=== PATIENT | female | born 1995 | race Caucasian/White ===

== ENCOUNTER → 2022-11-28 11:52 | Outpatient (BNVA) | payer OTHER, SELFPAY | PROVIDERS: Visit Provider Registered Nurse Neonatal Intensive Care | DX: R11.10 Vomiting, unspecified (principal); R11.2 Nausea with vomiting, unspecified | CPT/HCPCS: 81025 ==

== ENCOUNTER → 2023-04-21 08:13 | Outpatient (BNVA) | payer OTHER, SELFPAY | PROVIDERS: Visit Provider Obstetrics & Gynecology | DX: Z32.00 Encounter for pregnancy test, result unknown (principal); N92.6 Irregular menstruation, unspecified | CPT/HCPCS: 81025; 84443; 85025 ==

== ENCOUNTER → 2023-05-09 15:08 | Outpatient (BNVA) | payer OTHER, SELFPAY | PROVIDERS: Visit Provider Obstetrics & Gynecology | DX: Z12.4 Encounter for screening for malignant neoplasm of cervix (principal); Z32.00 Encounter for pregnancy test, result unknown | CPT/HCPCS: 81025; 84702; 87624 ==

== ENCOUNTER → 2023-05-12 09:12 | Outpatient (BNVA) | payer OTHER, SELFPAY | PROVIDERS: Visit Provider Obstetrics & Gynecology | DX: Z32.01 Encounter for pregnancy test, result positive (principal) | CPT/HCPCS: 84702 ==

== ENCOUNTER → 2023-06-02 11:02 | Outpatient (BNVA) | payer OTHER, SELFPAY | PROVIDERS: Visit Provider Obstetrics & Gynecology | DX: Z34.91 Encounter for supervision of normal pregnancy, unspecified, first trimester (principal); Z3A.01 Less than 8 weeks gestation of pregnancy; N83.201 Unspecified ovarian cyst, right side | CPT/HCPCS: 76817 ==

== ENCOUNTER → 2023-06-16 10:50 | Outpatient (BNVA) | payer OTHER, SELFPAY | PROVIDERS: Visit Provider Nurse Practitioner Women's Health | DX: Z34.00 Encounter for supervision of normal first pregnancy, unspecified trimester; Z82.79 Family history of other congenital malformations, deformations and chromosomal abnormalities | CPT/HCPCS: 80307; 84315; 84439; 84443; 84481; 85027; 86592; 86762; 86803; 86850; 86900; 87077; 87086; 87184; 87340; 87806 ==

== ENCOUNTER → 2023-07-05 13:50 | Outpatient (BNVA) | payer OTHER, SELFPAY | PROVIDERS: Visit Provider Obstetrics & Gynecology | DX: Z34.00 Encounter for supervision of normal first pregnancy, unspecified trimester (principal); Z82.79 Family history of other congenital malformations, deformations and chromosomal abnormalities | CPT/HCPCS: 84315; 87491; 87591 ==

== ENCOUNTER 2023-08-15 11:59 | Observation (INO) | payer OTHER, SELFPAY ==
[2023-08-15] VITALS (9 sets, daily range): BP systolic 103–134; BP diastolic 67–77; PULSE 64–99; RESP 16–18; TEMP 37–37.3; O2SAT 98–100; BMI 22.9
--- NOTE | 2023-08-15 12:21 | US_ITS ---
WS: [id number] ULTRASOUND OB FOCUSED HISTORY: ab pain; 18 wks preg, RIGHT lower quadrant pain. COMPARISON: 06/02/2023 Single intrauterine gestation is identified in breech position. Heart rate at 144 bpm. Cervix is clos ed. Normal amniotic fluid. Placenta is anterior with no previa or abruption. heart rate at 144 BPM. Patient has a known RIGHT ovarian cyst which is reidentified. Cyst is within the RIGHT ovary. The cys t measures 3.5 x 4.9 x 4.1 cm. Not significantly changed since the prior study. The adjacent RIGHT ov bela stromal tissue is more prominent. The entire ovary now is enlarged at 6.9 x 3.3 x 5.6 cm. There is vascularity identified in a portion of the ovary but not all of the ovarian stroma contains vascu larity. No adjacent free fluid. IMPRESSION: 1. Normal heart rate. 2. RIGHT ovarian cyst which has been previously described has not increased in size. The adjacent RIG HT ovary has increased in size and there is variable vascularity. Not all of the ovarian stroma has d ocumented blood flow. Due to the increase in size of the ovary and heterogeneity within the ovarian s troma, ovarian torsion or partial torsion should be considered. Please note the patient is tender dir ectly over this enlarged RIGHT ovary. Notified Zoe Le at 08/15/2023 2:18 PM.
[2023-08-15 12:48] LABS: Basophils % 0.3 %; Eosinophils % 0.2 %; Lymphocytes # 1.1 10^3/uL (0.8-4.8); Lymphocytes % 9.2 %; Mean Corpuscular HGB Conc 33.4 g/dL (30-55); Mean Corpuscular Hemoglobin 32.7 pg (27-33); Mean Corpuscular Volume 97.9 fl (85-98); Mean Platelet Volume 9.9 fL (7.4-10.4); Monocytes # 0.3 10^3/uL (0.2-0.9); Monocytes % 2.9 %; Neutrophils # 10.25 10^3/uL (1.8-7.7); Neutrophils % 86.7 %; Nucleated Red Blood Cells % 0 %; Platelet Count 277 10^3/cmm (157-399); Red Blood Count 3.88 10^6/uL (3.85-5.65); Red Cell Distribution Width 12.8 % (12.1-15.1); White Blood Count 11.81 10^3/uL (3.29-11.43)
[2023-08-15 13:03] LABS: Alanine Aminotransferase 48 U/L (0-33); Alkaline Phosphatase 104 U/L (35-105); Aspartate Amino Transferase 31 U/L (0-32); Blood Urea Nitrogen 6 mg/dL (6-20); Carbon Dioxide 22 mmol/L (22-29); Chloride 102 mmol/L (98-107); Globulin 3.2 g/dL (1.3-4.6); Glomerular Filtration Rate 149.1 mL/min (90-130); Glucose 98 mg/dL (65-115); Lipase 19 U/L (13-60); Osmolality Calculated 280 mOsm/kg (285-295); Sodium 136 mmol/L (136-145); Total Bilirubin 0.2 mg/dL (0.15-1.2); Total Protein 7.2 g/dL (6.6-8.7)
--- NOTE | 2023-08-15 13:57 | ED_ITS ---
Documented by User: [email or web address] Echavarria 08/15/23 16:19 HPI - Abdominal Pain General: Chief Complaint: Abdominal Pain Stated Complaint: abd pain, 18 weeks preg Time Seen by Provider: 08/15/23 13:36 Source: patient Mode of arrival: ambulatory Limitations: no limitations History of Present Illness: Patient is a 28-year-old female at approximately 18 weeks gestation here for com plaints of right pelvic pain that began around 6 AM this morning. Patient states she has a history of a right ovarian cyst but normally will cause her discomfort but she states her pain currently is worse than its ever been. She states she is having nausea and vomiting although this is not uncommon as she has had this throughout her . Her OB provider is Dr. Collins. Patient has not felt any movement thus far in her yet. She is not having any vaginal bleeding or leaking of fluids. She denies fevers or changes in her bowel movements. Denies urinary symptoms. MD elicited complaint: abdominal pain Pertinent past history: other (ovarian cyst ) Onset (ago): hour(s) Pain Consistency: constant Location: RLQ and Pelvis Severity: moderate Quality: sharp Radiation: none Migration to: no migration Exacerbating factors: nothing Relieving factors: nothing Associated Symptoms: Reports nausea and vomiting; Denies change in bowel habits, chills, constipation, diarrhea, dysuria and fever(s) Related Data: Patient : Yes Review of Systems Const: Denies: fever(s), chills, body aches, fatigue or malaise Card: Denies: chest pain Resp: Denies: dyspnea GI: Reports: abdominal pain, nausea and vomiting; Denies: diarrhea, constipation or change in bowel habits : Denies: flank pain, difficulty voiding, dysuria, urinary frequency or urinary urgency Musc: Denies: neck pain, back pain, extremity pain or joint pain Skin/Breast: Denies: rash Neuro: Denies: headache(s), numbness in extremities, weakness in extremities, sensory changes or dizziness PFSH ED PFSH: Family History Denies family history of Colon cancer Ovarian cancer Diabetes Heart disease Hyperlipidemia Breast cancer Hypertension Uterine cancer Thyroid disease Stroke Female Reproductive History: : 1 Physical Exam Const: COMMON NORMALS: average body habitus, patient oriented x3, no limitations, healthy appearing, alert and well nourished GENERAL APPEARANCE: cooperative and in distress (appears uncomfortable) Resp: COMMON NORMALS: normal respiratory effort and clear to auscultation bilaterally AUSCULTATION: clear to auscultation bilaterally Cardio: COMMON NORMALS: regular rate and regular rhythm RATE: regular rate RHYTHM: regular rhythm GI: COMMON NORMALS: Soft to palpation, No hepatosplenomegaly present and no masses INSPECTION: Yes normal to inspection and Yes gravid abdomen AUSCULTATION: Yes normoactive bowel sounds PALPATION: Yes Soft to palpation, Yes Tenderness to palpation present (GI) (R pelvis ) and Yes No hepa tosplenomegaly present OTHER: tenderness is lower in pelvis vs over RLQ/McBurney's : COMMON NORMALS: Yes no CVA tenderness BLADDER/KIDNEY EXAM: Yes no CVA tenderness Back/Pelvis: COMMON NORMALS: no CVA tenderness Extremity: GENERAL: Yes normal exam except as noted Neuro: COMMON NORMALS: patient oriented x3, moves all extremities, no focal motor deficits and no sensory deficits noted SENSORIUM/ORIENTATION: Yes alert Skin: COMMON NORMALS: no rashes or lesions noted GENERAL SKIN EXAM: no rashes or lesions noted Course Consultations: Consultation #1: Dr. Ashby-wanted me to call back with urine results, recommended 1g of Tylenol; called her back and she felt like patient could be discharged with return precautions-I discussed with her my hesitancy and we agreed to admit patient to OBS-she states that Dr. Collins is soa integration developer starting at 1700 so he will have to take patient-I told her I will contact him Consultation #2: Dr. Collins-recommends admit to labor and delivery and he will consult on patient at 1700 when he gets into town Vital Signs: Vital signs: Vital Signs Temperature 97.8 F 08/16/23 10:36 Pulse Rate 81 08/16/23 10:36 Respiratory Rate 16 08/16/23 10:36 Blood Pressure 92/58 08/16/23 10:36 Pulse Oximetry 98 08/16/23 10:36 Oxygen Delivery Me thod Room Air 08/16/23 10:35 MDM - Abdominal Pain Medical Decision Making Patient here for right sided pelvic pain beginning fairly suddenly around 6 AM this morning. Patient has had pain since onset. She has a known right ovarian cyst. On ultrasound today cyst size has not increased however her right ovary appears enlarged and the radiologist questioned an ovarian torsion or partial torsion. We will admit to labor and delivery and Dr. Collins will consult on patient. Lab Data 08/16/23 05:35 08/16/23 05:35 Labs/Radiology: Laboratory Results WBC 11.81 10^3/uL (3.29-11.43) H 08/15/23 12:38 RBC 3.88 10^6/uL (3.85-5.65) 08/15/23 12:38 Hgb 12.70 g/dL (11.27-16.99) 08/15/23 12:38 Hct 38.0 % (36-47) 08/15/23 12:38 MCV 97.9 fl (85-98) 08/15/23 12:38 MCH 32.7 pg (27-33) 08/15/23 12:38 MCHC 33.4 g/dL (30-55) 08/15/23 12:38 RDW 12.8 % (12.1-15.1) 08/15/23 12:38 Plt Count 277 10^3/cmm (157-399) 08/15/23 12:38 MPV 9.9 fL (7.4-10.4) 08/15/23 12:38 Neut % (Auto) 86.7 % 08/15/23 12:38 Lymph % (Auto) 9.2 % 08/15/23 12:38 [place] % (Auto) 2.9 % 08/15/23 12:38 Eos % (Auto) 0.2 % 08/15/23 12:38 Baso % (Auto) 0.3 % 08/15/23 12:38 Neut # (Auto) 10.25 10^3/uL (1.8-7.7) H 08/15/23 12:38 Lymph # (Auto) 1.1 10^3/uL (0.8-4.8) 08/15/23 12:38 [place] # (Auto) 0.3 10^3/uL (0.2-0.9) 08/15/23 12:38 Eos # (Auto) 0.0 10^3/uL (0.0-0.8) 08/15/23 12:38 Baso # (Auto) 0.0 10^3/uL (0.0-0.1) 08/15/23 12:38 Nucleated RBC % (auto) 0 % 08/15/23 12:38 Nucleated RBCs # 0.0 /100WBC 08/15/23 12:38 Sodium 136 mmol/L (136-145) 08/15/23 12:38 Potassium 4.0 mmol/L (3.5-5.1) 08/15/23 12:38 Chloride 102 mmol/L (98-107) 08/15/23 12:38 Carbon Dioxide 22 mmol/L (22-29) 08/15/23 12:38 Anion Gap 16.0 (5-19) 08/15/23 12:38 BUN 6 mg/dL (6-20) 08/15/23 12:38 Creatinine 0.5 mg/dL (0.5-0.9) 08/15/23 12:38 GFR Calculation 149.1 mL/min (90-130) H 08/15/23 12:38 Glucose 98 mg/dL (65-115) 08/15/23 12:38 Calculated Osmolality 280 mOsm/kg (285-295) L 08/15/23 12:38 Calcium 9.0 mg/dL (8.5-10.5) 08/15/23 12:38 Total Bilirubin 0.2 mg/dL (0.15-1.2) 08/15/23 12:38 AST 31 U/L (0-32) 08/15/23 12:38 ALT 48 U/L (0-33) H 08/15/23 12:38 Alkaline Phosphatase 104 U/L (35-105) 08/15/23 12:38 Total Protein 7.2 g/dL (6.6-8.7) 08/15/23 12:38 Albumin 4.0 g/dL (3.5-5.2) 08/15/23 12:38 Globulin 3.2 g/dL (1.3-4.6) 08/15/23 12:38 Lipase 19 U/L (13-60) 08/15/23 12:38 Urine Color Yellow (Yellow) 08/15/23 14:47 Urine Appearance Sl hazy (CLEAR) A 08/15/23 14:47 Urine pH 6 (5-7) 08/15/23 14:47 Ur Specific [place] 1.020 (1.005-1.030) 08/15/23 14:47 Urine Protein Trace (Negative) 08/15/23 14:47 Urine Glucose (UA) Norm (Normal) 08/15/23 14:47 Urine Ketones 1+ (Negative) H 08/15/23 14:47 Urine Blood 2+ (Negative) H 08/15/23 14:47 Urine Nitrate Negative (Negative) 08/15/23 14:47 Urine Bilirubin Neg (Negative) 08/15/23 14:47 Urine Urobilinogen Norm mg/dL (Negative) 08/15/23 14:47 Ur Leukocyte Esterase Negative (Negative) 08/15/23 14:47 Urine RBC 0-4 /hpf (0-2) H 08/15/23 14:47 Urine WBC 0-4 /hpf (0-5) H 08/15/23 14:47 Ur Squamous Epith Cells 0-4 /hpf (0-5) H 08/15/23 14:47 Ur Transition Epith Cell 0-4 /hpf 08/15/23 14:47 Amorphous Sediment Not Reportable 08/15/23 14:47 Urine Bacteria 1+ /hpf (NONE) H 08/15/23 14:47 Urine Mucus 3+ /hpf 08/15/23 14:47 All radiology interpretation(s) finalized by discharge Discharge Plan Discharge Patient Disposition: Placed in Observation Admit Provider: Wilder Collins Clinical Impression: Pelvic pain Discharge Diet: Usual diet Discharge Activity: Resume usual activity Coding Level of Care Code ED Card Grinder Helper for Chg Fwd Documented by User: Burt Mtz DO 08/18/23 06:59 HPI - Abdominal Pain General: Chief Complaint: Abdominal Pain Stated Complaint: abd pain, 18 weeks preg Time Seen by Provider: 08/15/23 13:36 PFSH ED PFSH: Family History Denies family history of Colon cancer Ovarian cancer Diabetes Heart disease Hyperlipidemia Breast cancer Hypertension Uterine cancer Thyroid disease Stroke Course Vital Signs: Vital signs: Vital Signs Temperature 97.8 F 08/16/23 10:36 Pulse Rate 81 08/16/23 10:36 Respiratory Rate 16 08/16/23 10:36 Blood Pressure 92/58 08/16/23 10:36 Pulse Oximetry 98 08/16/23 10:36 Oxygen Delivery Me thod Room Air 08/16/23 10:35 MDM - Abdominal Pain Medical Decision Making Patient here for right sided pelvic pain beginning fairly suddenly around 6 AM this morning. Patient has had pain since onset. She has a known right ovarian cyst. On ultrasound today cyst size has not increased however her right ovary appears enlarged and the radiologist questioned an ovarian torsion or partial torsion. We will admit to labor and delivery and Dr. Collins will consult on patient. Chart reviewed and patient discussed with midlevel. Agree with assessment and plan. Medical Records I reviewed the patient's medical records. Lab Data I reviewed the patient's lab results. 08/16/23 05:35 08/16/23 05:35 Labs/Radiology: Laboratory Results WBC 11.81 10^3/uL (3.29-11.43) H 08/15/23 12:38 RBC 3.88 10^6/uL (3.85-5.65) 08/15/23 12:38 Hgb 12.70 g/dL (11.27-16.99) 08/15/23 12:38 Hct 38.0 % (36-47) 08/15/23 12:38 MCV 97.9 fl (85-98) 08/15/23 12:38 MCH 32.7 pg (27-33) 08/15/23 12:38 MCHC 33.4 g/dL (30-55) 08/15/23 12:38 RDW 12.8 % (12.1-15.1) 08/15/23 12:38 Plt Count 277 10^3/cmm (157-399) 08/15/23 12:38 MPV 9.9 fL (7.4-10.4) 08/15/23 12:38 Neut % (Auto) 86.7 % 08/15/23 12:38 Lymph % (Auto) 9.2 % 08/15/23 12:38 [place] % (Auto) 2.9 % 08/15/23 12:38 Eos % (Auto) 0.2 % 08/15/23 12:38 Baso % (Auto) 0.3 % 08/15/23 12:38 Neut # (Auto) 10.25 10^3/uL (1.8-7.7) H 08/15/23 12:38 Lymph # (Auto) 1.1 10^3/uL (0.8-4.8) 08/15/23 12:38 [place] # (Auto) 0.3 10^3/uL (0.2-0.9) 08/15/23 12:38 Eos # (Auto) 0.0 10^3/uL (0.0-0.8) 08/15/23 12:38 Baso # (Auto) 0.0 10^3/uL (0.0-0.1) 08/15/23 12:38 Nucleated RBC % (auto) 0 % 08/15/23 12:38 Nucleated RBCs # 0.0 /100WBC 08/15/23 12:38 Sodium 136 mmol/L (136-145) 08/15/23 12:38 Potassium 4.0 mmol/L (3.5-5.1) 08/15/23 12:38 Chloride 102 mmol/L (98-107) 08/15/23 12:38 Carbon Dioxide 22 mmol/L (22-29) 08/15/23 12:38 Anion Gap 16.0 (5-19) 08/15/23 12:38 BUN 6 mg/dL (6-20) 08/15/23 12:38 Creatinine 0.5 mg/dL (0.5-0.9) 08/15/23 12:38 GFR Calculation 149.1 mL/min (90-130) H 08/15/23 12:38 Glucose 98 mg/dL (65-115) 08/15/23 12:38 Calculated Osmolality 280 mOsm/kg (285-295) L 08/15/23 12:38 Calcium 9.0 mg/dL (8.5-10.5) 08/15/23 12:38 Total Bilirubin 0.2 mg/dL (0.15-1.2) 08/15/23 12:38 AST 31 U/L (0-32) 08/15/23 12:38 ALT 48 U/L (0-33) H 08/15/23 12:38 Alkaline Phosphatase 104 U/L (35-105) 08/15/23 12:38 Total Protein 7.2 g/dL (6.6-8.7) 08/15/23 12:38 Albumin 4.0 g/dL (3.5-5.2) 08/15/23 12:38 Globulin 3.2 g/dL (1.3-4.6) 08/15/23 12:38 Lipase 19 U/L (13-60) 08/15/23 12:38 Urine Color Yellow (Yellow) 08/15/23 14:47 Urine Appearance Sl hazy (CLEAR) A 08/15/23 14:47 Urine pH 6 (5-7) 08/15/23 14:47 Ur Specific [place] 1.020 (1.005-1.030) 08/15/23 14:47 Urine Protein Trace (Negative) 08/15/23 14:47 Urine Glucose (UA) Norm (Normal) 08/15/23 14:47 Urine Ketones 1+ (Negative) H 08/15/23 14:47 Urine Blood 2+ (Negative) H 08/15/23 14:47 Urine Nitrate Negative (Negative) 08/15/23 14:47 Urine Bilirubin Neg (Negative) 08/15/23 14:47 Urine Urobilinogen Norm mg/dL (Negative) 08/15/23 14:47 Ur Leukocyte Esterase Negative (Negative) 08/15/23 14:47 Urine RBC 0-4 /hpf (0-2) H 08/15/23 14:47 Urine WBC 0-4 /hpf (0-5) H 08/15/23 14:47 Ur Squamous Epith Cells 0-4 /hpf (0-5) H 08/15/23 14:47 Ur Transition Epith Cell 0-4 /hpf 08/15/23 14:47 Amorphous Sediment Not Reportable 08/15/23 14:47 Urine Bacteria 1+ /hpf (NONE) H 08/15/23 14:47 Urine Mucus 3+ /hpf 08/15/23 14:47 Discharge Plan Discharge Patient Disposition: Placed in Observation Admit Provider: Wilder Collins Clinical Impression: Pelvic pain Discharge Diet: Usual diet Discharge Activity: Resume usual activity Coding Level of Care Code ED Card Grinder Helper for [facility] Shanelle
[2023-08-15] MEDS: metoclopramide 5 mg/mL SDV 2 mL 10 MG IVP (14:29)
--- NOTE | 2023-08-15 14:43 | PC.NURSE ---
ASSUMED CARE [id number]
[2023-08-15 15:26] LABS: Urine Color Yellow (Yellow)
[2023-08-15 15:27] LABS: Add Urine Microscopic? YES; Bilirubin Urine Neg (Negative); Blood Urine 2+ (Negative); Glucose Urine UA Norm (Normal); Ketones Urine 1+ (Negative); Leukocyte Esterase Urine Negative (Negative); Nitrate Urine Negative (Negative); Protein Urine Trace (Negative); Urine Appearance SL Hazy (CLEAR); Urobilinogen Urine Norm (Negative); pH Urine 6 (5-7)
[2023-08-15 15:32] LABS: Add Urine Culture? No; Bacteria Urine 1+ /hpf; Mucus Urine 3+ /hpf; RBC Urine 0-4 /hpf (0-2); Squamous Epithelial Cell Urine 0-4 /hpf (0-5); Transitional Epi Cells Urine 0-4 /hpf; WBC Urine 0-4 /hpf (0-5)
--- NOTE | 2023-08-15 16:08 | PC.NURSE ---
spoke with Dr Ashby- advised that patient to be admitted as observation and Dr Collins will see her this evening.
[2023-08-15] MEDS: morphine 4 mg/mL SDV 1 mL 2 MG IVP ×2 (16:45→20:59)
[2023-08-15] MEDS: acetaminophen 500 mg Tablet 1000 MG PO (16:46)
[2023-08-15] MEDS: dextrose 5%-lactated ringers 1,000 ML 125 ML IV (18:10)
--- NOTE | 2023-08-15 19:20 | P.HP_ITS ---
Providers/Chief Complaint Admitting Physician: Wilder Collins MD Primary KNITTING DEMONSTRATOR: Wilder Collins MD Chief Complaint: abd pain, 18 weeks preg HPI KNITTING DEMONSTRATOR History of Present Illness 28 y.o. G1 LMP April 10, 2023; EDC January 15, 2024 c/w 7-week sono At 18 w 1 d Was doing well until 6 a.m. on August 15, 2023 when she had vomiting Then at 9 a.m, started having sharp pain in right lower abdominal quadrant, which radiated to back Pain became severe, was 10 / 10 No fever, chills, dysuria, blood in urine + vomiting No vaginal bleeding Came to ER Received a dose of morphine while in ER Presently, patient states she feels ?very hungry? Present Details : 1 Para: 0 Medications/Allergies Home Medications Medication Instructions Recorded Confirmed Last Taken Type PNV 153-FA 400 mcg-om3 35 mg-dha 2 tab PO BEDTIME 08/15/23 08/15/23 08/14/23 History 25 mg-epa 5 mg-fish oil chew tablet ( Gummies) Allergies Allergy/AdvReac Type Severity Reaction Status Date / Time No Known Allergies Allergy Verified 08/15/23 16:24 PFSH KNITTING DEMONSTRATOR PFSH: Family History Denies family history of Colon cancer Ovarian cancer Diabetes Heart disease Hyperlipidemia Breast cancer Hypertension Uterine cancer Thyroid disease Stroke History History History 0 Term Miscarriages/Ectopic Living Children Care [facility]IOTT Calculator Estimated Delivery Date Method Current WG Current Estimate 01/15/24 LMP (Certain) 18w 2d Other Estimates 01/16/24 Ultrasound #1 18w 1d Vitals/I&O/Wt Last Vital Signs Temp 98.6 F 08/15/23 20:58 Pulse 88 08/15/23 20:58 Resp 16 08/15/23 20:59 BP 111/73 08/15/23 20:58 Pulse Ox 99 08/15/23 20:58 O2 Del Method Room Air 08/15/23 20:58 Weight last 48 hrs Weight 138 lb Physical Exam Narrative: Weight 138 lbs; 5?5? afebrile VS normal Comfortable, awake, alert Lungs: clear Cor: RRR Abd: soft, nondistended + mild tenderness on palpation lower quadrants No rebound tenderness Ext: normal Data 08/15/23 12:38 08/15/23 12:38 Results Labs OB ([facility]): Obstetrics US 08/15/23 Blood Type O Positive 06/16/23 Antibody Screen Negative 06/16/23 Hct 38.0 % (36-47) 08/15/23 Hgb 12.70 g/dL (11.27-16.99) 08/15/23 Rho(D) Type Positive 06/16/23 Plt Count 277 10^3/cmm (157-399) 08/15/23 Hep Bs Antigen Non-reactive (Nonreactive) 06/16/23 Hepatitis C Antibody Non-reactive (Nonreactive) 06/16/23 Rubella IgG Antibody 139.8 IU/mL (0.0-10.0) H 06/16/23 RPR Nonreactive (Nonreactive) 06/16/23 HIV 1&2 Ab & HIV 1 Ag Non-reactive (Non-Reactiv) 06/16/23 TSH 4.37 uIU/mL (0.27-4.20) H 06/16/23 Free T4 1.27 ng/dL (0.82-1.77) 06/16/23 C.trachomatis RNA (TMA) Not detected (NOT DETECTED) N.gonorrhoeae RNA (TMA) Not detected (NOT DETECTED) T. vaginalis Amp RNA Not detected (NOT DETECTED) 07/05/23 Chlamydia/GC Comment See note 07/05/23 Cystic Fibrosis Screen Negative 06/16/23 Ser , Semi-Qnt 797.70 mIU/mL 05/12/23 HCG, Qual Positive (Negative) H 05/09/23 Urine Opiates Screen Negative ng/mL (Negative) 06/16/23 Ur Barbiturates Screen Negative ng/mL (Negative) 06/16/23 Ur Phencyclidine Scrn Negative ng/mL (Negative) 06/16/23 Ur Amphetamines Screen Negative ng/mL (Negative) 06/16/23 U Benzodiazepines Scrn Negative ng/mL (Negative) 06/16/23 Urine Cocaine Screen Negative ng/mL (Negative) 06/16/23 U Marijuana (THC) Screen Negative ng/mL (Negative) 06/16/23 Micro Urine Specimen 06/16/23 Pap Smear Interpret See note 08/14/23 OB Ultrasound 08-15-23 fetus with normal heart motion Right ovary with 5 cm ovarian cyst A&P Assessment and plan (1) Supervision of normal first : 18 w 1 d (2) Pelvic pain: RLQ pain Vomiting Doubt appendicitis Doubt ovarian torsion Likely hemorrhagic ovarian cyst Plan admit for observation Plan serial clinical exams Attestations Medical Necessity Statement*: patient at 18 weeks gestation with RLQ pain Coding Level of Care Code Acute Code for Chg Fwd Diagnoses Supervision of normal first Z34.00 Pelvic pain R10.2 Time Spent (min) 60
[2023-08-16 05:42] LABS: Basophils % 0.2 %; Eosinophils # 0.1 10^3/uL (0.0-0.8); Eosinophils % 0.8 %; Hematocrit 31.6 % (36-47); Lymphocytes # 2.4 10^3/uL (0.8-4.8); Lymphocytes % 24.8 %; Mean Corpuscular HGB Conc 33.9 g/dL (30-55); Mean Corpuscular Hemoglobin 32.9 pg (27-33); Mean Corpuscular Volume 97.2 fl (85-98); Mean Platelet Volume 9.6 fL (7.4-10.4); Monocytes # 0.8 10^3/uL (0.2-0.9); Neutrophils # 6.36 10^3/uL (1.8-7.7); Neutrophils % 65.9 %; Nucleated Red Blood Cells % 0 %; Platelet Count 252 10^3/cmm (157-399); Red Blood Count 3.25 10^6/uL (3.85-5.65); Red Cell Distribution Width 12.8 % (12.1-15.1); White Blood Count 9.66 10^3/uL (3.29-11.43)
--- NOTE | 2023-08-16 05:58 | PC.NURSE ---
This nurse auscultated heart tones via Doppler babys HR at 0545 08/16/23. HR was 140s.
[2023-08-16 06:00] VITALS: BMI 22.9
[2023-08-16 06:33] LABS: Anion Gap 14.5 (5-19); Blood Urea Nitrogen 5 mg/dL (6-20); Calcium 8.3 mg/dL (8.5-10.5); Carbon Dioxide 20 mmol/L (22-29); Chloride 106 mmol/L (98-107); Glomerular Filtration Rate 192.9 mL/min (90-130); Glucose 97 mg/dL (65-115); Osmolality Calculated 281 mOsm/kg (285-295); Potassium 3.5 mmol/L (3.5-5.1); Sodium 137 mmol/L (136-145)
[2023-08-16 07:06] VITALS: BP 95/59; PULSE 71; RESP 16; TEMP 36.6; O2SAT 98
--- NOTE | 2023-08-16 08:50 | PM.OBGYDC ---
Discharge Providers MANAGER OPERATIONAL Date of Admission: 08/15/23 16:19 Date of Discharge: 08/24/23 Attending Provider at Admission: Wilder Collins MD Attending Provider at Discharge: Wilder Collins MD Consults: none Primary MANAGER OPERATIONAL: Wilder Collins MD Diagnoses at Discharge Discharge Diagnosis (1) Supervision of normal first : Details from hospital stay: 18 w 2 d RLQ pain hemorrhagic ovarian cyst Status: Acute (2) RLQ abdominal pain: Details from hospital stay: patient at 18 weeks gestation, acute onset of RLQ pain likely secondary to hemorrhagic ovarian cyst patient admitted for observation overnight pain much improved patient was then discharged home Status: Acute Reason for Visit Reason for Visit: abd pain, 18 weeks preg Brief History: 28 y.o. G1 At 18 w 1 d Was doing well until 6 a.m. on August 15, 2023 when she had vomiting Then at 9 a.m, started having sharp pain in right lower abdominal quadrant, which radiated to back Pain became severe, was 10 / 10 No fever, chills, dysuria, blood in urine + vomiting No vaginal bleeding Came to ER Hospital Course Hospital Course patient was evaluated OB sono showed a viable fetus; right ovary with 5 cm ovarian cyst patient was admitted overnight for observation patient's symptoms resolved with significant decrease in RLQ pain patient was discharged home. Physical Exam Narrative: Comfortable Afebrile, VS normal Abd: soft, nontender History History History 0 Term Miscarriages/Ectopic Living Children Discharge Data Studies Completed and Pending Completed Studies During Hospitalization Category Date Time Status [place] [id number] Stat Ultrasound 08/15/23 12:21 Completed Laboratory Results WBC 9.66 10^3/uL (3.29-11.43) 08/16/23 05:35 RBC 3.25 10^6/uL (3.85-5.65) L 08/16/23 05:35 Hgb 10.70 g/dL (11.27-16.99) L 08/16/23 05:35 Hct 31.6 % (36-47) L 08/16/23 05:35 MCV 97.2 fl (85-98) 08/16/23 05:35 MCH 32.9 pg (27-33) 08/16/23 05:35 MCHC 33.9 g/dL (30-55) 08/16/23 05:35 RDW 12.8 % (12.1-15.1) 08/16/23 05:35 Plt Count 252 10^3/cmm (157-399) 08/16/23 05:35 MPV 9.6 fL (7.4-10.4) 08/16/23 05:35 Neut % (Auto) 65.9 % 08/16/23 05:35 Lymph % (Auto) 24.8 % 08/16/23 05:35 [place] % (Auto) 8.0 % 08/16/23 05:35 Eos % (Auto) 0.8 % 08/16/23 05:35 Baso % (Auto) 0.2 % 08/16/23 05:35 Neut # (Auto) 6.36 10^3/uL (1.8-7.7) 08/16/23 05:35 Lymph # (Auto) 2.4 10^3/uL (0.8-4.8) 08/16/23 05:35 [place] # (Auto) 0.8 10^3/uL (0.2-0.9) 08/16/23 05:35 Eos # (Auto) 0.1 10^3/uL (0.0-0.8) 08/16/23 05:35 Baso # (Auto) 0.0 10^3/uL (0.0-0.1) 08/16/23 05:35 Nucleated RBC % (auto) 0 % 08/16/23 05:35 Nucleated RBCs # 0.0 /100WBC 08/16/23 05:35 Sodium 137 mmol/L (136-145) 08/16/23 05:35 Potassium 3.5 mmol/L (3.5-5.1) 08/16/23 05:35 Chloride 106 mmol/L (98-107) 08/16/23 05:35 Carbon Dioxide 20 mmol/L (22-29) L 08/16/23 05:35 Anion Gap 14.5 (5-19) 08/16/23 05:35 BUN 5 mg/dL (6-20) L 08/16/23 05:35 Creatinine 0.4 mg/dL (0.5-0.9) L 08/16/23 05:35 GFR Calculation 192.9 mL/min (90-130) H 08/16/23 05:35 Glucose 97 mg/dL (65-115) 08/16/23 05:35 Calculated Osmolality 281 mOsm/kg (285-295) L 08/16/23 05:35 Calcium 8.3 mg/dL (8.5-10.5) L 08/16/23 05:35 Total Bilirubin 0.2 mg/dL (0.15-1.2) 08/15/23 12:38 AST 31 U/L (0-32) 08/15/23 12:38 ALT 48 U/L (0-33) H 08/15/23 12:38 Alkaline Phosphatase 104 U/L (35-105) 08/15/23 12:38 Total Protein 7.2 g/dL (6.6-8.7) 08/15/23 12:38 Albumin 4.0 g/dL (3.5-5.2) 08/15/23 12:38 Globulin 3.2 g/dL (1.3-4.6) 08/15/23 12:38 Lipase 19 U/L (13-60) 08/15/23 12:38 Urine Color Yellow (Yellow) 08/15/23 14:47 Urine Appearance Sl hazy (CLEAR) A 08/15/23 14:47 Urine pH 6 (5-7) 08/15/23 14:47 Ur Specific Evans 1.020 (1.005-1.030) 08/15/23 14:47 Urine Protein Trace (Negative) 08/15/23 14:47 Urine Glucose (UA) Norm (Normal) 08/15/23 14:47 Urine Ketones 1+ (Negative) H 08/15/23 14:47 Urine Blood 2+ (Negative) H 08/15/23 14:47 Urine Nitrate Negative (Negative) 08/15/23 14:47 Urine Bilirubin Neg (Negative) 08/15/23 14:47 Urine Urobilinogen Norm mg/dL (Negative) 08/15/23 14:47 Ur Leukocyte Esterase Negative (Negative) 08/15/23 14:47 Urine RBC 0-4 /hpf (0-2) H 08/15/23 14:47 Urine WBC 0-4 /hpf (0-5) H 08/15/23 14:47 Ur Squamous Epith Cells 0-4 /hpf (0-5) H 08/15/23 14:47 Ur Transition Epith Cell 0-4 /hpf 08/15/23 14:47 Amorphous Sediment Not Reportable 08/15/23 14:47 Urine Bacteria 1+ /hpf (NONE) H 08/15/23 14:47 Urine Mucus 3+ /hpf 08/15/23 14:47 Vitals Last Vital Signs Temp 97.8 F 08/16/23 10:36 Pulse 81 08/16/23 10:36 Resp 16 08/16/23 10:36 BP 92/58 08/16/23 10:36 Pulse Ox 98 08/16/23 10:36 O2 Del Method Room Air 08/16/23 10:35 Results Labs OB ([facility]): Obstetrics US 08/15/23 Blood Type O Positive 06/16/23 Antibody Screen Negative 06/16/23 Hct 31.6 % (36-47) L 08/16/23 Hgb 10.70 g/dL (11.27-16.99) L 08/16/23 Rho(D) Type Positive 06/16/23 Plt Count 252 10^3/cmm (157-399) 08/16/23 Hep Bs Antigen Non-reactive (Nonreactive) 06/16/23 Hepatitis C Antibody Non-reactive (Nonreactive) 06/16/23 Rubella IgG Antibody 139.8 IU/mL (0.0-10.0) H 06/16/23 RPR Nonreactive (Nonreactive) 06/16/23 HIV 1&2 Ab & HIV 1 Ag Non-reactive (Non-Reactiv) 06/16/23 TSH 4.37 uIU/mL (0.27-4.20) H 06/16/23 Free T4 1.27 ng/dL (0.82-1.77) 06/16/23 C.trachomatis RNA (TMA) Not detected (NOT DETECTED) 07/05/23 N.gonorrhoeae RNA (TMA) Not detected (NOT DETECTED) 07/05/23 T. vaginalis Amp RNA Not detected (NOT DETECTED) 07/05/23 Chlamydia/GC Comment See note 07/05/23 Cystic Fibrosis Screen Negative 06/16/23 Ser , Semi-Qnt 797.70 mIU/mL 05/12/23 HCG, Qual Positive (Negative) H 05/09/23 Urine Opiates Screen Negative ng/mL (Negative) 06/16/23 Ur Barbiturates Screen Negative ng/mL (Negative) 06/16/23 Ur Phencyclidine Scrn Negative ng/mL (Negative) 06/16/23 Ur Amphetamines Screen Negative ng/mL (Negative) 06/16/23 U Benzodiazepines Scrn Negative ng/mL (Negative) 06/16/23 Urine Cocaine Screen Negative ng/mL (Negative) 06/16/23 U Marijuana (THC) Screen Negative ng/mL (Negative) 06/16/23 Micro Urine Specimen 06/16/23 Pap Smear Interpret See note 05/09/23 OB Ultrasound 08-15-23 fetus with normal heart motion Right ovary with 5 cm ovarian cyst Discharge Plan Discharge Patient Disposition: Home Condition: Stable Prescriptions: Continued Gummies 400 mcg-35 mg- 25 mg-5 mg Tablet,Chewable 2 tab PO BEDTIME Discharge Orders: Discharge Order (Routine); Ordered 08/16/23 Ordered By: Wilder Collins Referrals: Wilder Collins MD [Physician] - 08/30/23 1:30 pm Discharge Diet: Usual diet Discharge Activity: Resume usual activity Patient Instructions: Labor (GEN), Ovarian Cyst (GEN), Opioid Safety, OB Undelivered Discharge Stand Alone Forms: Work/School Release Discharge Attestations MANAGER OPERATIONAL Time Spent in Discharge Care*: less than 30 min Coding Level of Care Code Acute Code for Chg Fwd Diagnoses Supervision of normal first Z34.00 RLQ abdominal pain R10.31 Time Spent (min) 25
--- NOTE | 2023-08-16 08:50 | P.PN_ITS ---
CLUTCH MECH[employer]IC Subjective 2 Subjective: Interval history: States feeling much better Pain much decreased Feels hungry Eating well Vitals/I&O/Wt Last Vital Signs Temp 97.8 F 08/16/23 10:36 Pulse 81 08/16/23 10:36 Resp 16 08/16/23 10:36 BP 92/58 08/16/23 10:36 Pulse Ox 98 08/16/23 10:36 O2 Del Method Room Air 08/16/23 10:35 Physical Exam 2 Narrative: Comfortable Afebrile, VS normal Abd: soft, nontender Data 08/16/23 05:35 08/16/23 05:35 A&P Assessment and plan (1) Supervision of normal first : 18 w 2 d (2) RLQ abdominal pain: Likely hemorrhagic ovarian cyst Pain clinically much improved Plan discharge home Instructions / precautions given Call / return immediately if fever, chills, pain, bleeding, nausea, vomiting f/u one week Attestations 2 Medical Necessity Statement*: patient at 18 weeks gestation, with RLQ pain, hemorrhagic ovarian cyst. Pain much improved. plan discharge home today. Coding Level of Care Code Acute Code for Chg Fwd Diagnoses Supervision of normal first Z34.00 RLQ abdominal pain R10.31 Time Spent (min) 20
[2023-08-16 10:35] VITALS: BP 92/58; PULSE 81; RESP 16; TEMP 36.6; O2SAT 98
[2023-08-16 10:36] VITALS: BP 92/58; PULSE 81; RESP 16; TEMP 36.6; O2SAT 98
== END 2023-08-16 10:36 | disposition home or self-care (01) ==
LOC: ER 16:19 → OBGYN 16:20
PROVIDERS: Family Medicine; Admitting Provider Obstetrics & Gynecology; Emergency Provider Physician Assistant; Visit Provider Obstetrics & Gynecology
DX: O34.82 Maternal care for other abnormalities of pelvic organs, second trimester (principal); Z3A.18 18 weeks gestation of pregnancy; N83.201 Unspecified ovarian cyst, right side
CPT/HCPCS: 36415; 76815; 80048; 80053; 81001; 83690; 85025; 96361; 96365; 96375; 96376; 99285; G0378; J2270; J2765; J7121

== ENCOUNTER 2023-09-13 20:51 | Outpatient (CLI) | payer OTHER, SELFPAY ==
--- NOTE | 2023-09-13 | USR_ITS ---
[facility] Final Radiology Report Call: [phone] assistance Online chat: [email or web address] Name: CLOIN HUGHES Age: 28Years F Date: 09/13/2023 SSN: -- : 1995 Study: US LTD ONE OR MORE FETUSES Requesting Physician: PARUL ZAVALA Images: 31 Add?l Studies: Provided Clinical History: PROCEDURE INFORMATION: Exam: US , Limited Exam date and time: 09/13/2023 11:15 PM Age: 28 years old Clinical indication: complicated by abdominal or pelvic pain; Right lower quadrant; Second trimester (14 weeks 0 days to 27 weeks 6 days); Gestational age or lmp: 22w 2d; ; Patient HX: Re-evaluate right ovarian cyst seen at office visit last week. Patient complaining of 7/10 right pelvic pain. LABS AND CLINICAL REPORTS: Last menstrual period start date: 04/10/2023 Gestational age (Established): 22 w 2 d Estimated due date (Established): 01/15/2024 TECHNIQUE: Imaging protocol: Real-time ultrasound of the maternal uterus with image documentation. Exam focused on the clinical indication. COMPARISON: US OB limited [id number] 08/15/2023 1:01 PM FINDINGS: Gestation: Single intrauterine gestation. heart rate: 144 bpm presentation: Transverse Placenta: Anterior and Fundal grade 1 placenta without previa. Amniotic fluid: Amniotic fluid volume is normal. Amniotic fluid index: ANGELITA is 15.79 cm. MATERNAL: Cervix: Cervical length measures 3.6 cm. Right ovary/adnexa: Right ovary measures 7.4 cm x 5.4 cm x 3.4 cm. Right ovarian volume is 70.6 mL. Right ovary 4.9 cm simple cyst, similar in size compared to prior exam with color blood flow in the surrounding ovarian tissue, finding may be corpus luteal nature. The ovary overall is overall again seen to be somewhat enlarged measuring 3.4 x 5.4 x 7.4 cm Left ovary/adnexa: Left ovary measures 3.5 cm x 3 cm x 1.7 cm. Left ovarian volume is 9.5 mL. IMPRESSION: 1. Single live intrauterine fetus. 2. Right ovary 4.9 cm simple cyst, similar in size compared to prior exam with color blood flow in the surrounding ovarian tissue, finding may be corpus luteal nature. The ovary overall is overall again seen to be somewhat enlarged measuring 3.4 x 5.4 x 7.4 cm Thank you for allowing us to participate in the care of your patient. Dictated and Authenticated by: Den Brock MD 09/14/2023 12:09 AM Central Time ([place] & [place]) LAUREL
[2023-09-13 20:40] VITALS: BMI 24.1
[2023-09-13] MEDS: acetaminophen 500 mg Tablet PO (21:56)
[2023-09-13] MEDS: ondansetron 4 MG Tablet PO (21:56)
[2023-09-13 22:34] VITALS: RESP 15
[2023-09-13 23:45] VITALS: TEMP 36.2
[2023-09-14] VITALS (10 sets, daily range): BP systolic 102–152; BP diastolic 60–81; PULSE 78–110; RESP 16
[2023-09-14] MEDS: morphine IR 15 mg Tablet PO (01:19)
[2023-09-14] MEDS: ondansetron 4 MG Tablet PO (05:50)
--- NOTE | 2023-09-14 09:41 | PM.OBTRLD ---
OB L&D Triage Visit Information: Date of evaluation: 09/14/23 Comments/Additional reason(s) for visit: Left side pain Evaluation: Laboratory results: [facility] [address] [facility] [place] [address] Ultrasound Report Signed Patient: Colin Hughes Unit #: [id number] : 1995 Age/Sex: 28 / F ADM Date: 09/13/23 Loc: OBGYN Room/Bed: OB1-[address]: Ibrahima Zavala MD Ordering Provider/Ordering MD: Ibrahima Zavala MD Date of Service: 09/13/23 Procedure(s): US OB limited [id number] Accession Number(s): [id number] Report Number: [id number] [facility] Final Radiology Report Call: [phone] assistance Online chat: [email or web address] Name: COLIN HUGHES Age: 28Years F Date: 09/13/2023 SSN: -- : 1995 Study: US LTD ONE OR MORE FETUSES Requesting Physician: IBRAHIMA ZAVALA Images: 31 Add?l Studies: Provided Clinical History: PROCEDURE INFORMATION: Exam: US , Limited Exam date and time: 09/13/2023 11:15 PM Age: 28 years old Clinical indication: complicated by abdominal or pelvic pain; Right lower quadrant; Second trimester (14 weeks 0 days to 27 weeks 6 days); Gestational age or lmp: 22w 2d; ; Patient HX: Re-evaluate right ovarian cyst seen at office visit last week. Patient complaining of 7/10 right pelvic pain. LABS AND CLINICAL REPORTS: Last menstrual period start date: 04/10/2023 Gestational age (Established): 22 w 2 d Estimated due date (Established): 01/15/2024 TECHNIQUE: Imaging protocol: Real-time ultrasound of the maternal uterus with image documentation. Exam focused on the clinical indication. COMPARISON: US OB limited [id number] 08/15/2023 1:01 PM FINDINGS: Gestation: Single intrauterine gestation. heart rate: 144 bpm presentation: Transverse Placenta: Anterior and Fundal grade 1 placenta without previa. Amniotic fluid: Amniotic fluid volume is normal. Amniotic fluid index: ANGELITA is 15.79 cm. MATERNAL: Cervix: Cervical length measures 3.6 cm. Right ovary/adnexa: Right ovary measures 7.4 cm x 5.4 cm x 3.4 cm. Right ovarian volume is 70.6 mL. Right ovary 4.9 cm simple cyst, similar in size compared to prior exam with color blood flow in the surrounding ovarian tissue, finding may be corpus luteal nature. The ovary overall is overall again seen to be somewhat enlarged measuring 3.4 x 5.4 x 7.4 cm Left ovary/adnexa: Left ovary measures 3.5 cm x 3 cm x 1.7 cm. Left ovarian volume is 9.5 mL. IMPRESSION: 1. Single live intrauterine fetus. 2. Right ovary 4.9 cm simple cyst, similar in size compared to prior exam with color blood flow in the surrounding ovarian tissue, finding may be corpus luteal nature. The ovary overall is overall again seen to be somewhat enlarged measuring 3.4 x 5.4 x 7.4 cm Thank you for allowing us to participate in the care of your patient. Dictated and Authenticated by: Den Brock MD 09/14/2023 12:09 AM Central Time ([place] & [place]) Dictated By: Den Brock MD Signed By: Den Brock MD Signed Date/Time: Vital signs: Vital Signs - 24 hr 09/13/23 22:34 09/13/23 22:34 09/13/23 23:45 Temperature 97.2 F L Pulse Rate Respiratory Rate 15 15 Blood Pressure 09/14/23 00:45 09/14/23 01:19 09/14/23 01:45 Temperature Pulse Rate 93 90 Respiratory Rate 16 Blood Pressure 116/69 102/64 09/14/23 02:45 09/14/23 03:45 09/14/23 04:45 Temperature Pulse Rate 110 H 93 92 Respiratory Rate Blood Pressure 112/73 106/64 114/65 09/14/23 06:47 09/14/23 07:45 09/14/23 08:45 Temperature Pulse Rate 82 91 Respiratory Rate Blood Pressure 152/60 109/65 115/81 Care ELLIOTT Calculator Estimated Delivery Date Method Current WG Current Estimate 01/15/24 LMP (Certain) 22w 3d Other Estimates 04/22/24 Ultrasound #1 22w 2d Final Diagnosis Final Diagnosis (1) Ovarian cyst affecting in second trimester, antepartum: Plan: Follow-up with Dr. Hollingsworth Referral to [facility] Status: Acute Code(s): O34.82 - Maternal care for other abnormalities of pelvic organs, second trimester; N83.209 - Unspecified ovarian cyst, unspecified side Coding Level of Care Code Acute Code for Chg Fwd Diagnoses Ovarian cyst affecting in second trimester, antepartum O34.82; N83.209
--- NOTE | 2023-09-14 10:48 | PC.NURSE ---
Doppler 150's at 1048
== END 2023-09-14 10:49 | disposition home or self-care (01) ==
LOC: OPOB 21:01 → OBGYN 21:02
PROVIDERS: Visit Provider Obstetrics & Gynecology
DX: O34.82 Maternal care for other abnormalities of pelvic organs, second trimester (principal); Z3A.22 22 weeks gestation of pregnancy; N83.209 Unspecified ovarian cyst, unspecified side
CPT/HCPCS: 76815; 99211; Q0162

== ENCOUNTER → 2023-09-15 14:26 | Outpatient (BNVA) | payer OTHER, SELFPAY | PROVIDERS: Visit Provider Obstetrics & Gynecology | DX: Z34.92 Encounter for supervision of normal pregnancy, unspecified, second trimester (principal); Z3A.22 22 weeks gestation of pregnancy | CPT/HCPCS: 76805 ==

== ENCOUNTER 2023-09-27 09:53 | Outpatient (CLI) | payer OTHER, SELFPAY ==
[2023-09-27 10:00] VITALS: RESP 17; BMI 24.7
[2023-09-27 10:08] VITALS: BP 117/65; PULSE 101
[2023-09-27 10:24] VITALS: BP 107/69; PULSE 102
[2023-09-27 10:39] VITALS: BP 108/72; PULSE 95
[2023-09-27 10:54] VITALS: BP 108/68; PULSE 92
[2023-09-27 11:09] VITALS: BP 107/68; PULSE 99
== END 2023-09-27 11:15 | disposition home or self-care (01) ==
LOC: OPOB 09:55 → OBGYN 09:56
PROVIDERS: Visit Provider Obstetrics & Gynecology
DX: O13.9 Gestational [pregnancy-induced] hypertension without significant proteinuria, unspecified trimester (principal); Z3A.00 Weeks of gestation of pregnancy not specified
CPT/HCPCS: 84315; 99211

== ENCOUNTER → 2023-10-25 13:56 | Outpatient (BNVA) | payer OTHER, SELFPAY | PROVIDERS: Visit Provider Obstetrics & Gynecology | DX: Z34.00 Encounter for supervision of normal first pregnancy, unspecified trimester (principal); Z3A.00 Weeks of gestation of pregnancy not specified | CPT/HCPCS: 82950; 84315; 85025 ==

== ENCOUNTER → 2023-11-08 08:18 | Outpatient (BNVA) | payer OTHER, SELFPAY | PROVIDERS: Visit Provider Obstetrics & Gynecology | DX: Z34.00 Encounter for supervision of normal first pregnancy, unspecified trimester (principal); Z3A.00 Weeks of gestation of pregnancy not specified | CPT/HCPCS: 81000 ==

== ENCOUNTER → 2023-12-12 10:47 | Outpatient (BNVA) | payer OTHER, SELFPAY | PROVIDERS: Visit Provider Nurse Practitioner Women's Health | DX: Z34.90 Encounter for supervision of normal pregnancy, unspecified, unspecified trimester (principal); Z3A.00 Weeks of gestation of pregnancy not specified | CPT/HCPCS: 81000 ==

== ENCOUNTER → 2023-12-26 08:11 | Outpatient (BNVA) | payer OTHER, SELFPAY | PROVIDERS: Visit Provider Obstetrics & Gynecology | DX: Z34.03 Encounter for supervision of normal first pregnancy, third trimester (principal); Z3A.00 Weeks of gestation of pregnancy not specified | CPT/HCPCS: 84315; 87081 ==

== ENCOUNTER 2024-01-18 10:10 | Outpatient (CLI) | payer OTHER, SELFPAY ==
[2024-01-18] VITALS (9 sets, daily range): BP systolic 110–123; BP diastolic 71–81; PULSE 86–106; BMI 26.9
== END 2024-01-18 12:45 | disposition home or self-care (01) ==
LOC: OPOB 10:18 → OBGYN 10:19
PROVIDERS: Visit Provider Obstetrics & Gynecology
DX: O26.899 Other specified pregnancy related conditions, unspecified trimester (principal); Z3A.00 Weeks of gestation of pregnancy not specified; M54.9 Dorsalgia, unspecified
CPT/HCPCS: 59025; 99211

== ENCOUNTER 2024-01-20 01:38 | Inpatient (IN) | payer MEDICAID, SELFPAY ==
[2024-01-20] VITALS (58 sets, daily range): BP systolic 107–143; BP diastolic 56–91; PULSE 86–116; RESP 16–18; TEMP 36.2; BMI 26.4
[2024-01-20 02:06] LABS: Basophils % 0.3 %; Eosinophils % 0.1 %; Hematocrit 34.8 % (36-47); Lymphocytes # 2.3 10^3/uL (0.8-4.8); Lymphocytes % 14.7 %; Mean Corpuscular HGB Conc 32.2 g/dL (30-55); Mean Corpuscular Hemoglobin 28.6 pg (27-33); Mean Corpuscular Volume 88.8 fl (85-98); Mean Platelet Volume 10.9 fL (7.4-10.4); Monocytes # 0.9 10^3/uL (0.2-0.9); Monocytes % 5.9 %; Neutrophils # 12.27 10^3/uL (1.8-7.7); Neutrophils % 78.4 %; Nucleated Red Blood Cells % 0 %; Platelet Count 301 10^3/cmm (157-399); Red Blood Count 3.92 10^6/uL (3.85-5.65); White Blood Count 15.65 10^3/uL (3.29-11.43)
--- NOTE | 2024-01-20 06:05 | P.HP_ITS ---
Providers/Chief Complaint 2 Admitting Physician: Wilder Collins MD Primary VICE PRESIDENT BUSINESS DEVELOPMENT: Wilder Collins MD Chief Complaint: contractions HPI VICE PRESIDENT BUSINESS DEVELOPMENT History of Present Illness 28 y.o. G1 LMP April 10, 2023; EDC January 15, 2024 c/w 7-week sono At 40 w 5 d No complications Presented c/o painful UCs Active movements Father of baby with congenital aortic stenosis Had normal echocardiogram done in [place] Present Details : 1 Para: 0 Labs Rubella: Immune RPR: Negative GBS: Negative Medications/Allergies Allergies Allergy/AdvReac Type Severity Reaction Status Date / Time No Known Allergies Allergy Verified 01/16/24 15:09 PFSH VICE PRESIDENT BUSINESS DEVELOPMENT 2 PFSH: Family History Denies family history of Colon cancer Ovarian cancer Diabetes Heart disease Hyperlipidemia Breast cancer Hypertension Uterine cancer Thyroid disease Stroke History History History 2 1 Term 0 Miscarriages/Ectopic Living Children Care ELLIOTT Calculator 2 Estimated Delivery Date Method Current WG Current Estimate 01/15/24 LMP (Certain) 40w 5d Other Estimates 01/16/24 Ultrasound #1 40w 4d Vitals/I&O/Wt Last Vital Signs Temp 97.2 F L 01/20/24 09:52 Pulse 93 01/20/24 15:31 Resp 18 01/20/24 10:29 BP 110/71 01/20/24 15:31 O2 Del Method Room Air 01/20/24 01:36 Weight last 48 hrs Weight 159 lb Physical Exam 2 Narrative: Weight 160 lbs; 5?5? VS normal Awake, alert Lungs: clear Cor: RRR FH 37 cm, cephalic Cervix: 4 cm / 50% / -2 / posterior FHTs normal Ext: normal External monitor: regular [facility] heart tracing good variability, + accelerations Data 01/20/24 01:45 Results Labs OB ([facility]): 2 Obstetrics US 09/13/23 Blood Type O Positive 01/20/24 Antibody Screen Negative 01/20/24 Hct 34.8 % (36-47) L 01/20/24 Hgb 11.20 g/dL (11.27-16.99) L 01/20/24 Rho(D) Type Rh positive 01/20/24 Plt Count 301 10^3/cmm (157-399) 01/20/24 Hep Bs Antigen Non-reactive (Nonreactive) 06/16/23 Hepatitis C Antibody Non-reactive (Nonreactive) 06/16/23 Rubella IgG Antibody 139.8 IU/mL (0.0-10.0) H 06/16/23 RPR Nonreactive (Nonreactive) 06/16/23 HIV 1&2 Ab & HIV 1 Ag Non-reactive (Non-Reactiv) 06/16/23 TSH 4.37 uIU/mL (0.27-4.20) H 06/16/23 Free T4 1.27 ng/dL (0.82-1.77) 06/16/23 C.trachomatis RNA (TMA) Not detected (NOT DETECTED) N.gonorrhoeae RNA (TMA) Not detected (NOT DETECTED) T. vaginalis Amp RNA Not detected (NOT DETECTED) 07/05/23 Chlamydia/GC Comment See note 07/05/23 Cystic Fibrosis Screen Negative 06/16/23 Gest Glucose Tolerance 132 mg/dL (70-139) 10/25/23 Ser , Semi-Qnt 797.70 mIU/mL 05/12/23 HCG, Qual Positive (Negative) H 05/09/23 Urine Opiates Screen Negative ng/mL (Negative) 06/16/23 Ur Barbiturates Screen Negative ng/mL (Negative) 06/16/23 Ur Phencyclidine Scrn Negative ng/mL (Negative) 06/16/23 Ur Amphetamines Screen Negative ng/mL (Negative) 06/16/23 U Benzodiazepines Scrn Negative ng/mL (Negative) 06/16/23 Urine Cocaine Screen Negative ng/mL (Negative) 06/16/23 U Marijuana (THC) Screen Negative ng/mL (Negative) 06/16/23 Micro Urine Specimen 06/16/23 Pap Smear Interpret See note 05/09/23 A&P Assessment and plan (1) Supervision of normal first : 40 w 5 d Active labor GBS negative Admit to OB Qualifiers: Trimester: third trimester Qualified Code(s): Z34.03 - Encounter for supervision of normal first , third trimester (2) Active labor at term: Attestations 2 Medical Necessity Statement*: patient at 40 w 5 d, with active labor Coding Level of Care Code Acute Code for Chg Fwd Diagnoses Encounter for supervision of normal first in third trimester Z34.03 Trimester: third trimester Active labor at term Time Spent (min) 30
[2024-01-20] MEDS: alum-mag-hydroxide-sime 30 mL UDC PO (08:41)
--- NOTE | 2024-01-20 14:56 | P.ANESASSM_ITS ---
Pre-Anesthetic Assessment Height/Weight: Height 1.65 m Weight 72.121 kg Temp Pulse Resp BP O2 Del Method 97.2 F L 99 18 116/71 Room Air 01/20/24 09:52 01/20/24 14:51 01/20/24 10:29 01/20/24 14:51 01/20/24 01:36 Medications/Allergies Allergies Allergy/AdvReac Type Severity Reaction Status Date / Time No Known Allergies Allergy Verified 01/16/24 15:09 Current Medications Generic Name Dose Route Start Last Admin Trade Name Freq PRN Reason Stop Dose Admin Al Hydrox/Mg Hydrox/Simethicone 30 ml 01/20/24 01:34 01/20/24 08:41 Fcyl-Tiz-Ylxvqsyvw-Luis 30 Ml Udc PO 30 ml Q4H PRN Administration Indigestion (Use 2nd) PFSH Anesthesia Family History Denies family history of Colon cancer Ovarian cancer Diabetes Heart disease Hyperlipidemia Breast cancer Hypertension Uterine cancer Thyroid disease Stroke Female Reproductive History : 1 Data Anesthesia 01/20/24 01:45 Short CBC 01/20/24 Range/Units 01:45 WBC 15.65 H (3.29-11.43) 10^3/uL Hgb 11.20 L (11.27-16.99) g/dL Hct 34.8 L (36-47) % MCV 88.8 (85-98) fl Plt Count 301 (157-399) 10^3/cmm Neut % (Auto) 78.4 % Neut # (Auto) 12.27 H (1.8-7.7) 10^3/uL Blood Bank 01/20/24 01:45 Blood Type O Positive Rho(D) Type Rh positive Antibody Screen Negative Cardiac Studies: 2 No Data to Display
--- NOTE | 2024-01-20 14:57 | P.ANESASSM_ITS ---
Pre-Anesthetic Assessment Height/Weight: Height 1.65 m Weight 72.121 kg Temp Pulse Resp BP O2 Del Method 97.2 F L 99 18 116/71 Room Air 01/20/24 09:52 01/20/24 14:51 01/20/24 10:29 01/20/24 14:51 01/20/24 01:36 Familial anesthetic complications: None Was Beta Honey taken within 24 hours: N/A Was Clonidine taken within 24 hours: N/A Last intake: Solid food 0 Social No alcohol and No tobacco Exam alert, oriented x 3, clear to auscultation bilaterally and regular rate & rhythm Airway Submandibular: within normal limits Cervical ROM: within normal limits Mallampati: Class II Dentition: chipped and full Comments: Comments: Broken/loose History/ROS No significant history except as noted and No significant complaints Pulmonary Seasonal allergies CV/HEM None reported Urinary Tract Infection Kidney stone 1 month ago Hepatic None reported GI Gastroesophageal Reflux Disease Metabolic None reported Musc/skel None reported Neuropsych None reported Anesthetic Plan ASA status: 2 Anesthesia: Anesthesia Evaluation, General and Regional (specify below) (Epidural) Risk of > 500 ml blood loss (7ml/kg in children): Yes, adequate IV access and fluids planned Medications/Allergies Allergies Allergy/AdvReac Type Severity Reaction Status Date / Time No Known Allergies Allergy Verified 01/16/24 15:09 Current Medications Generic Name Dose Route Start Last Admin Trade Name Freq PRN Reason Stop Dose Admin Al Hydrox/Mg Hydrox/Simethicone 30 ml 01/20/24 01:34 01/20/24 08:41 Hwoh-Oaf-Vvmystoec-Luis 30 Ml Udc PO 30 ml Q4H PRN Administration Indigestion (Use 2nd) PFSH Anesthesia Family History Denies family history of Colon cancer Ovarian cancer Diabetes Heart disease Hyperlipidemia Breast cancer Hypertension Uterine cancer Thyroid disease Stroke Female Reproductive History : 1 Data Anesthesia 01/20/24 01:45 Short CBC 01/20/24 Range/Units 01:45 WBC 15.65 H (3.29-11.43) 10^3/uL Hgb 11.20 L (11.27-16.99) g/dL Hct 34.8 L (36-47) % MCV 88.8 (85-98) fl Plt Count 301 (157-399) 10^3/cmm Neut % (Auto) 78.4 % Neut # (Auto) 12.27 H (1.8-7.7) 10^3/uL Blood Bank 01/20/24 01:45 Blood Type O Positive Rho(D) Type Rh positive Antibody Screen Negative Cardiac Studies: 2 No Data to Display
[2024-01-20] MEDS: oxytocin 30 UNIT/500 ML BAG IV (18:10)
[2024-01-20] MEDS: dextrose 5%-lactated ringers 1,000 ML 125 ML IV (18:10)
[2024-01-21] VITALS (34 sets, daily range): BP systolic 87–126; BP diastolic 52–91; PULSE 88–126; RESP 16–17; TEMP 36.6–36.8; O2SAT 98–99
[2024-01-21] MEDS: dextrose 5%-lactated ringers 1,000 ML 125 ML IV (01:44)
[2024-01-21] MEDS: lidocaine 2% INJ 20 mL 40 ML INJECTION (04:08)
--- NOTE | 2024-01-21 04:18 | P.PCNOB_ITS ---
Delivery Note: Date of delivery: January 21, 2024 Pre-delivery diagnoses: Term Post-delivery diagnoses: Term delivered Procedure: Spontaneous vaginal delivery Delivering Physician: Ibrahima Chamberlain MD Estimated blood loss (mL): 500 Findings: Male infant Third-degree laceration Pre-Delivery Course: Ms. Connelly is a 28 year old G1 patient with LMP 04/10/23, ELLIOTT 01/15/24, placing her at 40w 5d today who has been receiving care from [facility]. CC: Onset of labor at term. HPI: Received appropriate care. Daily vitamins since start of care. labs have all been normal, including negative for HIV. She was found to negative for Group B Strep from screening at 36 weeks. She has gained approximately 26 lbs throughout the . She denies a history of HTN during . Glucose tolerance screening for gestational diabetes was negative. Delivery: The patient was noted to be complete and pushing, so was placed in the dorsal lithotomy position, prepped and draped in the usual sterile fashion for a vaginal delivery. Pt. Noted to have no anesthesia. At the patient delivered a viable at 40+4 weeks male weighing 3690 g with scores of 7 and 7 at one and five minutes, respectively. The vertex was delivered spontaneously over intact perineum. The patient was asked to push and the head delivered spontaneously in the LEONIDAS position, over an intact perineum. A nuchal cord was checked and none noted. The anterior shoulder delivered easily and the posterior shoulder followed. The remainder of the infant was easily delivered and the oropharynx and nasopharynx was bulb suctioned. The infant was noted to have spontaneous cry and spontaneous movement of all four extremities. The cord was clamped x 2 and cut and noted to have 2 arteries and one vein. The was passed to the briefly to mother abdomen where nursing personnel were in attendance and placed in the warmer. Cord blood sample was then obtained. The placenta delivered intact spontaneously and the uterus was explored. 20 units of Pitocin was placed in the IV bag to firm the uterus. Examination of the cervix and vaginal vault did not reveal any lacerations. A vaginal pack was then placed. Examination of the perineum showed a third-degree laceration. The laceration was repaired with 2-0 Vicryl and 3-0 Vicryl in the normal fashion in a running non locking fashion to reapproximate the laceration in layers. The vaginal pack was then removed. The patient tolerated this procedure well, and recovered in L&D room her infant was taken to the nursery for director of parks and recreation evaluation. All sponge and needle counts were correct. Post-Delivery Status: Good and stable History History History 1 Term 0 Miscarriages/Ectopic Living Children A&P Assessment and plan (1) Term delivered: Plan observation Coding Level of Care Code Acute Code for Chg Fwd Diagnoses Term delivered O80
--- NOTE | 2024-01-21 07:30 | PC.NURSE ---
pt moved to OB12 via wheelchair. oriented to room/call light. proud parent pack and feeding log discussed.
[2024-01-21] MEDS: ibuprofen 800 mg tablet PO ×3 (08:43→22:13)
[2024-01-21] MEDS: PRENATAL VIT NO.130/IRON/FOLIC 1 EACH TABLET PO (08:43)
[2024-01-21] MEDS: docusate sodium 100 mg Capsule PO (08:43)
[2024-01-21] MEDS: lanolin oint 7 gm 1 APPLIC TOPICAL (15:29)
[2024-01-21] MEDS: benzocaine-menthol 78 gm Canister 1 SPRAY TOPICAL (15:30)
[2024-01-21 16:24] LABS: Hematocrit 23.9 % (36-47); Mean Corpuscular HGB Conc 33.9 g/dL (30-55); Mean Corpuscular Hemoglobin 29.6 pg (27-33); Mean Corpuscular Volume 87.2 fl (85-98); Mean Platelet Volume 10.9 fL (7.4-10.4); Platelet Count 232 10^3/cmm (157-399); Red Blood Count 2.74 10^6/uL (3.85-5.65); Red Cell Distribution Width 13.9 % (12.1-15.1); White Blood Count 20.47 10^3/uL (3.29-11.43)
[2024-01-22 05:00] VITALS: BP 101/64; PULSE 84; RESP 14; TEMP 36.3; O2SAT 100
--- NOTE | 2024-01-22 11:18 | P.DS_ITS ---
Discharge Providers FORM DESIGNER Date of Admission: 01/20/24 01:38 Date of Discharge: 01/22/24 Attending Provider at Admission: Wilder Collins MD Attending Provider at Discharge: Ibrahima Chamberlain MD Diagnoses at Discharge Discharge Diagnosis (1) Term delivered: Status: Acute Reason for Visit Reason for Visit: contractions Hospital Course Hospital Course Mrs. Connelly 28-year-old female G1, P0 admitted for induction at term, she progressed to have a spontaneous vaginal delivery, placated by third-degree laceration. She delivered a term weight 3690 g. observation uneventful. Tolerated diet well. Ambulating without difficulty. Patient was counseled regarding pelvic rest for 6 weeks (no sex, no tampons, no vaginal douches). Return to the emergency room if any fever, increased bleeding or pain. Information Peripartum Data: Delivery Method: Vaginal Physical Exam Narrative: GA; alert and oriented x 3 HEENT: normal Breasts: engorged Nipples - skin intact Lungs; clear to auscultation Heart: regular rhythm, no murmurs. Abd: Appropriately tender. BS+. Uterine fundus below umbilicus. No Fundal Tenderness. Perineum: normal lochia. Extremities: no edema, no cyanosis, no tenderness. History History History 1 Term 0 Miscarriages/Ectopic Living Children Discharge Data Studies Completed and Pending Laboratory Results WBC 20.47 10^3/uL (3.29-11.43) H 01/21/24 16:15 RBC 2.74 10^6/uL (3.85-5.65) L 01/21/24 16:15 Hgb 8.10 g/dL (11.27-16.99) L 01/21/24 16:15 Hct 23.9 % (36-47) L 01/21/24 16:15 MCV 87.2 fl (85-98) 01/21/24 16:15 MCH 29.6 pg (27-33) 01/21/24 16:15 MCHC 33.9 g/dL (30-55) 01/21/24 16:15 RDW 13.9 % (12.1-15.1) 01/21/24 16:15 Plt Count 232 10^3/cmm (157-399) 01/21/24 16:15 MPV 10.9 fL (7.4-10.4) H 01/21/24 16:15 Neut % (Auto) 78.4 % 01/20/24 01:45 Lymph % (Auto) 14.7 % 01/20/24 01:45 [place] % (Auto) 5.9 % 01/20/24 01:45 Eos % (Auto) 0.1 % 01/20/24 01:45 Baso % (Auto) 0.3 % 01/20/24 01:45 Neut # (Auto) 12.27 10^3/uL (1.8-7.7) H 01/20/24 01:45 Lymph # (Auto) 2.3 10^3/uL (0.8-4.8) 01/20/24 01:45 [place] # (Auto) 0.9 10^3/uL (0.2-0.9) 01/20/24 01:45 Eos # (Auto) 0.0 10^3/uL (0.0-0.8) 01/20/24 01:45 Baso # (Auto) 0.0 10^3/uL (0.0-0.1) 01/20/24 01:45 Nucleated RBC % (auto) 0 % 01/20/24 01:45 Nucleated RBCs # 0.0 /100WBC 01/20/24 01:45 Blood Type O Positive 01/20/24 01:45 Rho(D) Type Rh positive 01/20/24 01:45 Antibody Screen Negative 01/20/24 01:45 Vitals Last Vital Signs Temp 97.4 F L 01/22/24 05:00 Pulse 84 01/22/24 05:00 Resp 14 01/22/24 05:00 BP 101/64 01/22/24 05:00 Pulse Ox 100 01/22/24 05:00 O2 Del Method Room Air 01/22/24 05:00 Results Labs OB ([facility]): Obstetrics US 09/13/23 Blood Type O Positive 01/20/24 Antibody Screen Negative 01/20/24 Hct 23.9 % (36-47) L 01/21/24 Hgb 8.10 g/dL (11.27-16.99) L 01/21/24 Rho(D) Type Rh positive 01/20/24 Plt Count 232 10^3/cmm (157-399) 01/21/24 Hep Bs Antigen Non-reactive (Nonreactive) 06/16/23 Hepatitis C Antibody Non-reactive (Nonreactive) 06/16/23 Rubella IgG Antibody 139.8 IU/mL (0.0-10.0) H 06/16/23 RPR Nonreactive (Nonreactive) 06/16/23 HIV 1&2 Ab & HIV 1 Ag Non-reactive (Non-Reactiv) 06/16/23 TSH 4.37 uIU/mL (0.27-4.20) H 06/16/23 Free T4 1.27 ng/dL (0.82-1.77) 06/16/23 C.trachomatis RNA (TMA) Not detected (NOT DETECTED) N.gonorrhoeae RNA (TMA) Not detected (NOT DETECTED) T. vaginalis Amp RNA Not detected (NOT DETECTED) 07/05/23 Chlamydia/GC Comment See note 07/05/23 Cystic Fibrosis Screen Negative 06/16/23 Gest Glucose Tolerance 132 mg/dL (70-139) 10/25/23 Ser , Semi-Qnt 797.70 mIU/mL 05/12/23 HCG, Qual Positive (Negative) H 05/09/23 Urine Opiates Screen Negative ng/mL (Negative) 06/16/23 Ur Barbiturates Screen Negative ng/mL (Negative) 06/16/23 Ur Phencyclidine Scrn Negative ng/mL (Negative) 06/16/23 Ur Amphetamines Screen Negative ng/mL (Negative) 06/16/23 U Benzodiazepines Scrn Negative ng/mL (Negative) 06/16/23 Urine Cocaine Screen Negative ng/mL (Negative) 06/16/23 U Marijuana (THC) Screen Negative ng/mL (Negative) 06/16/23 Micro Urine Specimen 06/16/23 Pap Smear Interpret See note 05/09/23 Discharge Plan Discharge Patient Disposition: Home Condition: Stable Prescriptions: New acetaminophen 325 mg capsule 325 mg PO Q4H PRN (Reason: fever or pain) Qty: 60 0RF docusate sodium [Colace] 100 mg capsule 100 mg PO BID Qty: 60 0RF ferrous sulfate [Iron (ferrous sulfate)] 325 mg (65 mg iron) tablet 325 mg PO BID Qty: 60 0RF ibuprofen 800 mg tablet 800 mg PO TID PRN (Reason: pain) Qty: 60 0RF Discharge Orders: Discharge Order (Routine); Ordered 01/22/24 Ordered By: Ibrahima Chamberlain Referrals: Wilder Collins MD [Physician] - 6 Weeks Discharge Diet: Usual diet Discharge Activity: Limit activity as instructed Patient Instructions: Depression (DC), Opioid Safety (DC), Preeclampsia and Eclampsia After Delivery (GEN), Hemorrhage (DC), OB Discharge Report, OB Food/Drug Interaction Guide, Opioid Safety, OB Home Care, OB Vaginal Deliveries - [facility], Abnormal Bleeding Activity Restrictions/Additional Instructions: 1. Please call [facility] on next working day to make your appointment in 6 weeks. 2. Please stay home until you come back to the clinic on first post- hospatilization check up. 3. Please follow instructions on your medications CAREFULLY. 4. If you have abdominal incision, do not cover it unless dressing is necessary because of drainage. OK to shower, but avoid bath. Leave steri-strips until they fall off. If they are still on one week after surgery, you may remove them. 5. If you had vaginal surgery or vaginal repair, Dr. Chamberlain may instruct you to take SITZ bath. 6. Yellow, blood tinged odorous vaginal discharge is usually normal after hysterectomy or vaginal surgeries. 7. No SEXUAL INTERCOURSE, tampons, or douches until you are completely released from the post-operative care. 8. Avoid constipation by eating right and maybe using some Metamucil or Milk of Magnesia. 9. All prescription refills are given during the working hours. Please do no wait till it runs out. Call the clinic at [phone] before your medication runs out. The clinic will get in touch with your doctor to prescribe medications if necessary. 10. Please remain within 40 mile radius from our hospital because emergencies do happen now and then during the post-operative period. 11. If you have stairs at home, take one step at a time slowly and minimize the number of trips. It helps to stay in one floor for the next few days. No lifting except what you can lift by one hand until you are released from the post-operative care. 12. Driving is discouraged until you are well healed. It may be 3-4 weeks before you feel strong enough to drive. You should be able to turn and look through the rear window without pain and you should be able to push the brake pedal very hard without pain before you drive. No fast rules, but SAFETY should be your primary concern. DO NOT drive if you are on sedating medications such as narcotics. 13. Call the clinic (during working hours) to make urgent appointment or go to the Emergency room, if any of the following occurs: i. Vaginal bleeding becomes heavy, more than a period. ii. Incision becomes red and sore, or drains pus. iii. Your TEMPERATURE is over 100.4F or you have chill. iv. IV site becomes red and swollen (a little ``knot?? is usually OK) v. Persistent nausea and vomiting vi. Persistent constipation or diarrhea vii. Rash or allergic reaction to medications. Discharge Attestations FORM DESIGNER Time Spent in Discharge Care*: greater than 30 min Coding Level of Care Code Acute Code for Chg Fwd Diagnoses Term delivered O80
[2024-01-22 12:20] VITALS: BP 110/72; PULSE 78; TEMP 36.7
== END 2024-01-22 12:28 | disposition home or self-care (01) | DRG 768 ==
LOC: OPOB 01:39 → OBGYN 01:39
PROVIDERS: Obstetrics & Gynecology; Admitting Provider Obstetrics & Gynecology; Visit Provider Obstetrics & Gynecology
DX: O48.0 Post-term pregnancy (principal); Z37.0 Single live birth; O70.20 Third degree perineal laceration during delivery, unspecified; Z3A.40 40 weeks gestation of pregnancy; Z82.79 Family history of other congenital malformations, deformations and chromosomal abnormalities
CPT/HCPCS: 36415; 59025; 59409; 85025; 85027; 86850; 86900; 99211; J2590; J7121; J9999

== ENCOUNTER → 2024-06-04 11:13 | Outpatient (BNVA) | payer OTHER, MEDICAID, SELFPAY | PROVIDERS: Visit Provider Obstetrics & Gynecology | DX: N92.6 Irregular menstruation, unspecified (principal) | CPT/HCPCS: 81025 ==

== ENCOUNTER → 2024-12-10 11:28 | Outpatient (BNVA) | payer OTHER, MEDICAID, SELFPAY | PROVIDERS: Visit Provider Family Medicine | DX: N93.9 Abnormal uterine and vaginal bleeding, unspecified (principal) | CPT/HCPCS: 81000; 81025 ==

== ENCOUNTER → 2025-07-16 16:01 | Outpatient (BNVA) | payer OTHER, SELFPAY | PROVIDERS: Visit Provider Nurse Practitioner Women's Health | DX: Z12.4 Encounter for screening for malignant neoplasm of cervix (principal) | CPT/HCPCS: 87624 ==